=== PATIENT | female | born 1975 | race Caucasian/White ===

== ENCOUNTER 2019-01-29 19:42 | Emergency (ER) | payer OTHER ==
[~2019-01-29] VITALS: Ht 170.2 cm; Wt 81.7 kg
[2019-01-29] MEDS ORDERED: TRAMADOL 50 MG50 MG PO (20:55)
[2019-01-29 21:50] VITALS: BP 157/86
== END 2019-01-29 21:51 | disposition home or self-care (01) ==
LOC: M.ERS 19:42
DX: S52.122A Displaced fracture of head of left radius, initial encounter for closed fracture (principal); F17.210 Nicotine dependence, cigarettes, uncomplicated; W18.39XA Other fall on same level, initial encounter; Y93.89 Activity, other specified; Y92.89 Other specified places as the place of occurrence of the external cause; Y99.8 Other external cause status